=== PATIENT | male | born 1990 | race American Indian/Alaskan Native ===

== ENCOUNTER 2021-09-14 22:33 | Emergency (ER) | payer OTHER, MEDICAID ==
[2021-09-14 23:48] VITALS: BP 135/91
[2021-09-15] MEDS ORDERED: ACETAMINOPHEN 500 MG TAB PO ONE (00:20)
[2021-09-15] MEDS ORDERED: CYCLOBENZAPRINE 10 MG TAB PO ONE (00:20)
[2021-09-15] MEDS ORDERED: IBUPROFEN 600 MG TAB PO ONE (00:20)
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
== END 2021-09-15 01:39 | disposition home or self-care (01) ==
LOC: ED 22:33
DX: S29.012A Strain of muscle and tendon of back wall of thorax, initial encounter (principal); M62.830 Muscle spasm of back; V89.2XXA Person injured in unspecified motor-vehicle accident, traffic, initial encounter; Y93.89 Activity, other specified; Y92.488 Other paved roadways as the place of occurrence of the external cause; Y99.8 Other external cause status
CPT/HCPCS: 99282